=== PATIENT | female | born 1995 | race African-American/Black ===

== ENCOUNTER 2021-01-18 22:38 | Inpatient (IN) ==
[2021-01-19] MEDS ORDERED: ONDANSETRON 4 MG/2 ML VIAL IV PRN (00:29)
[2021-01-19] MEDS ORDERED: PIPERACILLIN/TAZOBACTAM 3,375 MG in SODIUM CHLORIDE 0.9% 100 ML IV SCH (01:00)
[2021-01-19] MEDS: PIPERACILLIN/TAZOBACTAM 3,375 MG in SODIUM CHLORIDE 0.9% 100 ML IV SCH ×3 (02:40→17:07)
[2021-01-19] MEDS: SODIUM CHLORIDE 0.9% 1,000 ML IV SCH ×2 (02:40→08:23)
[2021-01-19] MEDS: HYDROmorphone 2 MG/1 ML VIAL IV PRN ×4 (02:45→21:07)
[2021-01-19 07:07] LABS: Basophils # 0.1 10*3/uL (0.0-0.2); Basophils % 0.2 % (0.0-0.8); Eosinophils % 0.1 % (0.00-10.9); Hematocrit 28.5 VOL% (35.7-47.0); Hemoglobin 9.1 GM/DL (12.0-16.0); Immature Granulocytes % 0.9 %; Immature Granulocytes Absolute 0.28 #; Lymphocytes # 3.1 10*3/uL (1.4-4.0); Lymphocytes % 10.3 % (21.3-54.2); Mean Corpuscular HGB Conc 31.9 GM/DL (32-36); Mean Corpuscular Volume 63.8 FL (87-102); Mean Platelet Volume 9.6 FL (9.6-12.0); NRBC # 0.17 10*3/uL; Neutrophils % 80.5 % (38.7-73.9); Platelet Count 508 T/CUMM (130-400); Red Blood Count 4.47 MC/CUMM (3.8-5.5); Red Cell Distribution Width 20.7 % (9.3-17.3); White Blood Count 29.7 T/CUMM (4-12)
[2021-01-19 07:22] LABS: Albumin 2.9 G/DL (3.4-5.0); Bilirubin,Total 1.6 MG/DL (0.20-1.00); Calcium 8.6 MG/DL (8.5-10.1); Osmolality,Calculated 273.5 MOS/KG (273-304); Potassium 2.9 MMOL/L (3.5-5.1); Total Protein 7.7 G/DL (6.4-8.2)
[2021-01-19 07:26] LABS: Hypochromasia 1+; Lymphocytes 5 % (20-55); Nucleated Red Blood Cells 1 (0-5); Platelet Estimate Adequate; Segmented Neutrophils 88 % (50-85); Target Cells Few; Total Cells Counted 100
[2021-01-19 07:27] LABS: Microcytosis Slight
[2021-01-19] MEDS ORDERED: HYDROmorphone 2 MG/1 ML VIAL IV PRN (10:05)
[2021-01-19] MEDS: POTASSIUM CHLORIDE 20 MEQ TABLET PO PRN ×4 (12:00→18:03)
[2021-01-19 15:02] LABS: Hematocrit 28.3 VOL% (35.7-47.0); Hemoglobin 9.2 GM/DL (12.0-16.0)
[2021-01-20 01:14] LABS: Basophils # 0.1 10*3/uL (0.0-0.2); Basophils % 0.4 % (0.0-0.8); Eosinophils # 0.1 10*3/uL (0.0-0.87); Eosinophils % 0.5 % (0.00-10.9); Hematocrit 27.5 VOL% (35.7-47.0); Hemoglobin 8.8 GM/DL (12.0-16.0); Immature Granulocytes % 0.5 %; Immature Granulocytes Absolute 0.07 #; Lymphocytes # 3.9 10*3/uL (1.4-4.0); Lymphocytes % 25.4 % (21.3-54.2); Mean Corpuscular Volume 64.1 FL (87-102); Mean Platelet Volume 9.1 FL (9.6-12.0); Monocytes % 12.7 % (1.7-12.7); NRBC # 0.14 10*3/uL; Neutrophils % 60.5 % (38.7-73.9); Platelet Count 475 T/CUMM (130-400); Red Blood Count 4.29 MC/CUMM (3.8-5.5); Red Cell Distribution Width 20.4 % (9.3-17.3); White Blood Count 15.3 T/CUMM (4-12)
[2021-01-20] MEDS: PIPERACILLIN/TAZOBACTAM 3,375 MG in SODIUM CHLORIDE 0.9% 100 ML IV SCH ×2 (01:20→09:00)
[2021-01-20] MEDS: POTASSIUM CHLORIDE 20 MEQ TABLET PO PRN ×2 (02:24→04:05)
[2021-01-20 08:12] LABS: Basophils # 0.1 10*3/uL (0.0-0.2); Basophils % 0.5 % (0.0-0.8); Eosinophils # 0.1 10*3/uL (0.0-0.87); Eosinophils % 0.6 % (0.00-10.9); Hematocrit 30.2 VOL% (35.7-47.0); Hemoglobin 9.8 GM/DL (12.0-16.0); Immature Granulocytes % 0.5 %; Immature Granulocytes Absolute 0.06 #; Lymphocytes # 4.2 10*3/uL (1.4-4.0); Lymphocytes % 32.5 % (21.3-54.2); Mean Corpuscular HGB Conc 32.5 GM/DL (32-36); Mean Corpuscular Volume 64.3 FL (87-102); Mean Platelet Volume 9.5 FL (9.6-12.0); Monocytes % 10.8 % (1.7-12.7); NRBC # 0.16 10*3/uL; Neutrophils % 55.1 % (38.7-73.9); Platelet Count 539 T/CUMM (130-400); Red Cell Distribution Width 20.8 % (9.3-17.3); White Blood Count 12.9 T/CUMM (4-12)
[2021-01-20 08:33] LABS: Calcium 8.5 MG/DL (8.5-10.1); Osmolality,Calculated 273.5 MOS/KG (273-304); Potassium 3.6 MMOL/L (3.5-5.1)
[2021-01-20] MEDS ORDERED: PHENOL 1.4% THROAT SPRAY 177 ML BOTTLE PO PRN (10:37)
[2021-01-20 11:37] VITALS: BP 133/89
[2021-01-20] MEDS ORDERED: [UNRECOGNIZED DRUG - OTHER] IM ONE (12:58)
[2021-01-20] MEDS ORDERED: [UNRECOGNIZED DRUG - OTHER] IM ONE (12:58)
[2021-01-20] MEDS ORDERED: PNEUMOCOCCAL VACCINE (13 VALENT) 0.5 ML SYRINGE IM ONE (12:58)
[2021-01-20] MEDS ORDERED: HAEMOPHILUS B CONJ VACCINE 0.5 ML/10 MCG VIAL IM ONE (12:58)
== END 2021-01-20 16:10 | disposition home or self-care (01) | DRG 663 ==
LOC: N.ED 22:38 → N.EDINP 01-19 00:29 → N.3E 01-19 02:24
PROVIDERS: ADMIT Internal Medicine; ATTEND Internal Medicine